=== PATIENT | female | born 1950 | race Caucasian/White ===

== ENCOUNTER 2017-02-03 16:10 | Emergency (ER) | payer MEDICARE, BC ==
[~2017-02-03] VITALS: Ht 162.6 cm; Wt 72.6 kg
[2017-02-03] MEDS ORDERED: Nitroglycerin 2% oint pkt TOPIC ONE (16:15)
[2017-02-03] MEDS ORDERED: Famotidine 20 MG/ 2ML VIAL IVP ONE (16:15)
[2017-02-03] MEDS ORDERED: fentaNYL 100 mcg/2 mL IV ONE (16:15)
[2017-02-03] MEDS ORDERED: Mylanta II UD 30ml ORAL ONE (16:15)
[2017-02-03] MEDS ORDERED: Lidocaine 2% Visc 15ml soln ORAL ONE (16:15)
[2017-02-03] MEDS ORDERED: PROPRANOLOL HCL20 MG ORAL (16:22)
[2017-02-03] MEDS ORDERED: TRIAMTERENE-HC1 EAC5 ORAL (16:22)
[2017-02-03] MEDS ORDERED: PRAMIPEXOLE DI0.5 MG ORAL (16:22)
[2017-02-03] MEDS ORDERED: TRAZODONE HCL150 MG ORAL (16:22)
[2017-02-03] MEDS ORDERED: Tubing IV Cassette IV ONE (16:27)
--- NOTE | 2017-02-03 16:47 | Emergency Room Report ---
History of Present Illness General Chief Complaint: Chest Pain Source: Patient, Family Member Present Illness HPI Patient presents with chest pain. This started about an hour before paramedics were called. Substernal radiates up into her neck. Severe. They gave her aspirin nitroglycerin and it went from a 9 down to 7. She's had this pain before. Also states that it's been caused by GI origin in the past. She's had cardiac workups in the past that have been negative. Also risks factors are negative. She's not taking a preventative medications due to concern about osteoporosis. She's had endoscopy done for H pylori and these have been negative in the past. it has been quite a while said she had the last one done. She hasn't had any vomiting, hematemesis or melena. This been no fevers cough sore throat. Not radiate to back. At one point, they thought pain was gall bladder and this was removed at that time. She was doing house work. The pain was 7/10 and seemed to fluctuate - not related to exertion. No prior cardiac risk factors other than hypertension. She works out on the exercycle and has no symptoms. H/O interstitial cystitis. 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 She appears fairly ill. Emergent evaluation is needed to exclude acute myocardial infarction, acute coronary syndrome. Other etiologies of her, gastritis, esophageal spasm, pulmonary embolus. As the patient feels and looks ill EKG, labs, chest x-ray will be performed. In addition to that the patient will get nitrates. She received aspirin in the field. Addition to that Mylanta and viscous lidocaine will be given along with Pepcid and fentanyl. Pain now 4-5/10 after treatment. Awaiting labs. EKG NSR, no acute changes. D dimer is negative (excludes PE and makes dissection less likely). WBC and H/ H normal. Patient gradually improved. Final pain <2/10. Patient stable for outpatient observation and treatment. Laboratory Tests Test 02/03/17 17:45 White Blood Count 6.9 K/UL (4.8-10.8) Red Blood Count 4.31 M/UL (4.20-5.40) Hemoglobin 12.7 G/DL (12.0-16.0) Hematocrit 39.4 % (37.0-47.0) Mean Corpuscular Volume 91 FL (80-99) Mean Corpuscular Hemoglobin 29.5 PG (27.0-31.0) Mean Corpuscular Hemoglobin Concent 32.2 G/DL (32.0-36.0) Red Cell Distribution Width 11.2 % (11.6-14.8) L Platelet Count 191 K/UL (150-450) Mean Platelet Volume 6.3 FL (6.5-10.1) L Neutrophils (%) (Auto) 76.2 % (45.0-75.0) H Lymphocytes (%) (Auto) 14.7 % (20.0-45.0) L Monocytes (%) (Auto) 5.4 % (1.0-10.0) Eosinophils (%) (Auto) 2.8 % (0.0-3.0) Basophils (%) (Auto) 0.9 % (0.0-2.0) Prothrombin Time 10.0 SEC (9.30-11.50) Prothrombin Time INR 1.0 (0.9-1.1) PTT 27 SEC (23-33) D-Dimer 399 ng/mL (<500) Urine Color Pale yellow Urine Appearance Slightly cloudy Urine pH 7 (4.5-8.0) Urine Specific [place] 1.005 (1.005-1.035) Urine Protein Negative (NEGATIVE) Urine Glucose (UA) Negative (NEGATIVE) Urine Ketones 1+ (NEGATIVE) H Urine Occult Blood Negative (NEGATIVE) Urine Nitrite Negative (NEGATIVE) Urine Bilirubin Negative (NEGATIVE) Urine Urobilinogen Normal MG/DL (0.0-1.0) Urine Leukocyte Esterase 1+ (NEGATIVE) H Urine RBC 0-2 /HPF (0 - 2) Urine WBC 30-40 /HPF (0 - 2) H Urine Squamous Epithelial Cells Many /LPF (NONE/OCC) H Urine Bacteria Few /HPF (NONE) Sodium Level 129 mEQ/L (135-145) L Potassium Level 3.7 mEQ/L (3.4-4.9) Chloride Level 88 mEQ/L (98-107) L Carbon Dioxide Level 26 mEQ/L (20-30) Anion Gap 15 (5-15) Blood Urea Nitrogen 20 mg/dL (7-23) Creatinine 0.7 mg/dL (0.5-0.9) Estimate Glomerular Filtration Rate > 60 mL/min (>60) Glucose Level 92 mg/dL (74-106) Calcium Level 9.0 mg/dL (8.6-10.2) Total Bilirubin 0.5 mg/dL (0.0-1.2) Aspartate Amino Transferase (AST) 69 U/L (5-40) H Alanine Aminotransferase (ALT) 36 U/L (3-33) H Alkaline Phosphatase 76 U/L (35-104) Total Creatine Kinase 110 U/L (26-140) Troponin I < 0.30 ng/mL (<=0.30) Pro-B-Type Natriuretic Peptide 188 pg/mL (0-125) H Total Protein 7.2 g/dL (6.6-8.7) Albumin 4.1 g/dL (3.5-5.2) Globulin 3.1 g/dL Albumin/Globulin Ratio 1.3 (1.0-2.7) Lipase 66 U/L (< 60) H EKG Diagnostic Results Rate: normal Rhythm: NSR ST Segments: no acute changes Rhythm Strip Diag. Results EP Interpretation: yes Rhythm: NSR, no PVC's, no ectopy Chest X-Ray Diagnostic Results EP Interpretation: Yes Findings: no consolidation, no effusion, no pneumothorax, no acute cardiopulmonary disease Number of Views: 1 Last Vital Signs Date Time Temp Pulse Resp B/P Pulse Ox O2 Delivery O2 Flow Rate FiO2 02/03/17 20:12 96.8 63 12 133/85 100 Room Air Status: improved Disposition: HOME, SELF-CARE Condition: Improved Scripts Nitrofurantoin Monohyd/M-Cryst* (MACROBID 100 MG*) 100 Mg Capsule 100 MG ORAL EVERY 12 HOURS, #14 CAP Prov: Mustapha Luu M.D. 02/03/17 Famotidine (PEPCID) 20 Mg Tablet 20 MG ORAL DAILY, #30 TAB 0 Refills Prov: Mustapha Luu M.D. 02/03/17 Mustapha Luu M.D. Feb 03, 2017 16:47
[2017-02-03 17:47] VITALS: BP 108/59
[2017-02-03 18:04] LABS: APPEARANCE,URINE SLIGHTLY CLOUDY; KETONES,URINE 1+ (NEGATIVE); LEUKOCYTE ESTERASE ,URINE 1+ (NEGATIVE); NITRITE,URINE NEGATIVE (NEGATIVE); PH,URINE 7 (4.5-8.0); PROTEIN,URINE NEGATIVE (NEGATIVE); UROBILINOGEN,URINE NORMAL MG/DL (0.0-1.0)
[2017-02-03 18:05] LABS: BASOPHILS % (AUTO) 0.9 % (0.0-2.0); EOSINOPHILS % (AUTO) 2.8 % (0.0-3.0); LYMPHOCYTES % (AUTO) 14.7 % (20.0-45.0); MEAN CORPUSCULAR HEMOGLOBIN 29.5 PG (27.0-31.0); MEAN CORPUSCULAR HGB CONC 32.2 G/DL (32.0-36.0); MEAN CORPUSCULAR VOLUME 91 FL (80-99); MEAN PLATELET VOLUME 6.3 FL (6.5-10.1); MONOCYTES % (AUTO) 5.4 % (1.0-10.0); NEUTROPHILS % (AUTO) 76.2 % (45.0-75.0); PLATELET COUNT 191 K/UL (150-450); RED BLOOD COUNT 4.31 M/UL (4.20-5.40); RED CELL DISTRIBUTION WIDTH 11.2 % (11.6-14.8); WHITE BLOOD COUNT 6.9 K/UL (4.8-10.8)
[2017-02-03 18:22] LABS: TROPONIN I < 0.30 ng/mL (<=0.30)
[2017-02-03 18:25] LABS: ALANINE AMINOTRANSFERASE 36 U/L (3-33); ALBUMIN/GLOBULIN RATIO 1.3 (1.0-2.7); ANION GAP 15 (5-15); ASPARTATE AMINO TRANSFERASE 69 U/L (5-40); CARBON DIOXIDE 26 mEQ/L (20-30); CHLORIDE 88 mEQ/L (98-107); CREATININE 0.7 mg/dL (0.5-0.9); GLOMERULAR FILTRATION RATE > 60 mL/min (>60); HEMOLYSIS 8; LIPASE 66 U/L (< 60); POTASSIUM 3.7 mEQ/L (3.4-4.9); SODIUM 129 mEQ/L (135-145); TOTAL PROTEIN 7.2 g/dL (6.6-8.7)
[2017-02-03 18:32] LABS: BACTERIA,URINE FEW /HPF; RBC,URINE 0-2 /HPF (0 - 2); SQUAMOUS EPITHELIAL CELL,UR MANY /LPF (NONE/OCC); WBC,URINE 30-40 /HPF (0 - 2)
[2017-02-03] MEDS ORDERED: cefTRIAXone 1 GM in NS 55 ML IVPB ONE (19:00)
[2017-02-03] MEDS ORDERED: PEPCID20 MG ORAL (19:06)
[2017-02-03] MEDS ORDERED: NITROFURANTOIN100 M2 ORAL (19:12)
[2017-02-03 19:54] VITALS: BP 133/85
[2017-02-03 20:12] VITALS: BP 133/85
--- NOTE | 2017-02-04 09:15 | Diagnostic Imaging Report ---
Clinical history: Chest pain. Technique: Portable AP chest radiograph was obtained. Comparison: None Findings: There is borderline cardiomegaly with probable mild interstitial edema. No focal consolidation is identified. No clinically significant pneumothorax or pleural effusion is noted. The bony thorax is unremarkable. Impression: Borderline cardiomegaly with probable mild interstitial edema. No evidence of pneumonia.
--- NOTE | 2017-02-04 18:47 | Cardiology Report ---
APPROVED REPORT EKG Measurement Heart [id number] Normal sinus rhythm Low voltage QRS Cannot rule out Anterior infarct, age undetermined Abnormal ECG
== END 2017-02-03 20:13 | disposition home or self-care (01) ==
LOC: EDBD 16:10 → EMR 17:04
DX: R07.9 Chest pain, unspecified (principal); N39.0 Urinary tract infection, site not specified; I10 Essential (primary) hypertension; Z91.013 Allergy to seafood; Z88.8 Allergy status to other drugs, medicaments and biological substances; Z91.040 Latex allergy status
CPT/HCPCS: 36415; 71010; 80053; 81003; 82550; 83690; 83880; 84484; 85025; 85379; 85610; 85730; 87086; 87181; 93005; 96360; 96374; 96375; 99284; J0696; J2405; J3010; J7040; S0028